=== PATIENT | female | born 1980 | race Two or more races ===

== ENCOUNTER 2023-11-05 08:35 | Outpatient (CLI) | payer OTHER | END 2023-11-05 09:02 | disposition home or self-care (01) | LOC: TOM 08:35 | PROVIDERS: ATTEND Internal Medicine Gastroenterology | DX: R10.31 Right lower quadrant pain (principal); R93.3 Abnormal findings on diagnostic imaging of other parts of digestive tract; K56.609 Unspecified intestinal obstruction, unspecified as to partial versus complete obstruction ==